=== PATIENT | female | born 1950 | race Caucasian/White ===

== ENCOUNTER 2019-08-13 07:53 | Day surgery (SDC) | payer MEDICARE, MEDICAID ==
[2019-08-12 08:42] VITALS: BMI 29.7
[~2019-08-13 07:53] MED LIST: Activase 2 MG VIAL FS SCH; EPINEPHrine 0.3 MG in Ophthalmic Irrigation Solution 500 ML IVP SCH
[2019-08-13] MEDS ORDERED: Cyclopentolate 1% Opth Drop 2 ML BOT ONE (08:49)
[2019-08-13] MEDS ORDERED: Phenylephrine 2.5% Ophth Soln 5 ML BOT ONE (08:49)
[2019-08-13] MEDS ORDERED: Midazolam HCl 2 mg/2 ml Vial ONE ×2 (10:41→11:06)
[2019-08-13] MEDS ORDERED: Fentanyl 100 MCG/2 ML VIAL ONE (11:06)
--- NOTE | 2019-08-13 15:27 | OP ---
DATE OF PROCEDURE: 08/13/2019 PRINCIPAL PREOPERATIVE DIAGNOSIS: Subretinal submacular hemorrhage, left eye. POSTOPERATIVE DIAGNOSIS: Subretinal submacular hemorrhage, left eye. NAME OF PROCEDURES PERFORMED: 1. 25-gauge pars plana vitrectomy, left eye. 2. Subretinal tissue plasminogen activator injection, left eye. 3. Endolaser, left eye. 4. 15% SF6 fill, left eye. ESTIMATED BLOOD LOSS: None. SPECIMENS REMOVED: None. COMPLICATIONS: None. ANESTHESIA: MAC with retrobulbar block. SUMMARY OF OPERATION: The patient was identified in the preoperative holding area, where the correct eye being the left eye was marked for surgery. She was taken to the operating room, where MAC anesthesia was induced. A retrobulbar block was administered to the left eye. The block consisted of 1:1 ratio of 4% lidocaine and 0.75% Marcaine. A total of 5 mL was administered. The left eye was then prepped and draped in the usual sterile ophthalmic fashion for surgery. A wire lid speculum was placed. A standard 25-gauge pars plana vitrectomy platform was fashioned with trocars placed approximately 4 mm from the limbus. The infusion was noted to be within the vitreous cavity prior to being turned on to an infusion pressure of 30 mmHg. The light pipe Micro vitrector were introduced into the eye under visualization of RESIGHT viewing system. A careful core vitrectomy was performed followed by injection of Kenalog. Subsequently, a gentle posterior vitreous detachment was created followed by completion of peripheral shave vitrectomy. Using the 41-gauge subretinal needle, the tissue plasminogen activator was injected into the area of submacular hemorrhage just superior to the inferotemporal arcade. A sizable bleb of tissue plasminogen activator was achieved followed by slight filling of sterile air under the retina. An air-fluid exchange was performed followed by an air-gas exchange with 15% SF6. During the air-gas exchange, it was noted that there was a temporal retinal defect at 4 o'clock with an area of retinal detachment extending beyond the intended area of tissue plasminogen activator injection. The eye was subsequently filled again with balanced salt solution to improve visualization of the defect. The defect was marked with endo cautery and the superotemporal drainage retinotomy site was created peripheral to the supratemporal arcade. This was created with the endo cautery followed by opening with a flute needle. An air-fluid exchange was performed, which allowed for complete flattening of the retina. During this air-fluid exchange, a sizable portion of submacular hemorrhage was drained through the retinotomy site. Subsequently, endolaser was performed around the retinotomy site as well as the peripheral defect and the temporal peripheral retina. Subsequently, air-gas exchange was performed with 15% SF6. The cannulas were sequentially removed and all sclerotomies were sutured with 8-0 Vicryl suture. Following suturing, all sclerotomies were noted to be gas tight. Ancef and Kenalog were injected subconjunctivally. The wire lid speculum was removed followed by application of TobraDex ophthalmic ointment and a light patch and shield. The patient tolerated the procedure well and was taken to outpatient recovery area in good condition. Job ID: [id number]
== END 2019-08-13 14:00 | disposition home or self-care (01) ==
LOC: SDC 07:53
PROVIDERS: ATTEND Ophthalmology Retina Specialist
PROC: 08953ZZ Drainage of Left Vitreous, Percutaneous Approach (ICD-10-PCS; principal; 2019-08-13)
DX: H35.62 Retinal hemorrhage, left eye (principal); Z88.5 Allergy status to narcotic agent; Z88.8 Allergy status to other drugs, medicaments and biological substances
CPT/HCPCS: 67043; J2997; J0171; J2250; J3010; J7620

== ENCOUNTER 2020-07-21 07:49 | Outpatient (CLI) | payer MEDICARE, MEDICAID, OTHER ==
[2020-07-21 15:57] LABS: #Basophils 0.1 thou/uL (0.0-0.2); #Eosinphils 0.5 thou/uL (0.0-0.7); #Lymphocytes 2.2 thou/uL (1.20-3.40); #Monocytes 0.7 thou/uL (0.11-0.59); #Neutrophils 3.8 thou/uL (1.40-6.50); %Basophils 0.7 % (0.0-1.0); %Eosinophils 6.8 % (0.0-10.0); %Lymphocytes 30.4 % (21.0-51.0); %Monocytes 9.2 % (0.0-10.0); %Neutrophils 52.9 % (42.0-75.0); Hemoglobin 14.2 g/dL (12.0-16.0); Mean Corpuscular HGB CONC 33.7 g/dL (32.0-36.0); Mean Corpuscular Volume 95.1 fL (78.0-98.0); Mean Platelet Volume 8.3 fL (7.4-10.4); Platelet Count 233 thou/uL (130-400); RBC Distribution Width 11.3 % (11.5-14.5); Red Blood Cell (RBC) Count 4.45 mill/uL (4.20-5.40); White Blood Cell (WBC) Count 7.2 thou/uL (4.8-10.8)
[2020-07-21 16:14] LABS: INR-International Normal Ratio 0.9; Prothrombin Time 12.3 sec (12.0-14.7)
[2020-07-21 16:41] LABS: Anion Gap 10 mmol/L (10-20); BUN (Urea Nitrogen) 21 mg/dL (9.8-20.1); Calc. Creatinine Clearance 0 mL/min (70-130); Calcium 9.2 mg/dL (7.8-10.44); Carbon Dioxide 31 mmol/L (23-31); Chloride 106 mmol/L (98-107); Estimated GFR-MDRD 73; Glucose 80 mg/dL (80-115); Potassium 4.4 mmol/L (3.5-5.1); Sodium 143 mmol/L (136-145)
[2020-07-22 12:25] LABS: SARS-CoV-2 MS2 Positive; SARS-CoV-2 N Gene Negative; SARS-CoV-2 S Gene Negative; SARS-CoV-2 by NAA Not Detected (NotDetected); SARS-CoV-2 orf1ab Negative
--- NOTE | 2020-07-24 08:38 | EKG ---
Test Reason : Blood Pressure : / mmHG Vent. Rate : 078 BPM Atrial Rate : 078 BPM P-R Int : 126 ms QRS Dur : 084 ms QT Int : 370 ms P-R-T Axes : 066 072 075 degrees QTc Int : 421 ms Normal sinus rhythm Right atrial enlargement Nonspecific ST abnormality poor quality EKG Abnormal ECG No previous ECGs available Confirmed by DR. Sha VÁSQUEZ ([id number]) on 07/24/2020 8:38:25 AM Referred By: JUAREZ Confirmed By:DR. Sha VÁSQUEZ
== END 2020-07-21 07:50 | disposition home or self-care (01) ==
LOC: LABBT 07:49
PROVIDERS: ATTEND Orthopaedic Surgery
DX: Z01.818 Encounter for other preprocedural examination (principal); Z20.828 Contact with and (suspected) exposure to other viral communicable diseases; M17.11 Unilateral primary osteoarthritis, right knee
CPT/HCPCS: 80048; 85025; 85610; 87081; 93005; U0003; 87635; 93010

== ENCOUNTER 2020-07-26 05:45 | Day surgery (SDC) | payer MEDICARE, MEDICAID ==
[2020-07-25 14:30] VITALS: BMI 29.7
[2020-07-26] MEDS ORDERED: Sodium Chloride 0.9% 100 ML ONE (06:10)
[2020-07-26] MEDS ORDERED: Tranexamic Acid 1,000 MG/10 ML VIAL ONE (06:10)
[2020-07-26] MEDS ORDERED: Vancomycin 1 GM/200 ML BAG ONE (06:10)
[2020-07-26] MEDS ORDERED: Midazolam HCl 2 mg/2 ml Vial ONE (06:13)
[2020-07-26] MEDS ORDERED: Ropivacaine 0.2% HCl/PF 20 ML ONE (06:13)
[2020-07-26] MEDS ORDERED: Lidocaine 1% (PF) 30 ML VIAL ONE (06:13)
[2020-07-26] MEDS ORDERED: Fentanyl 100 MCG/2 ML VIAL ONE ×2 (06:13→07:18)
[2020-07-26] MEDS ORDERED: Bupivacaine/Epinephrine 0.25% 30 ML VIAL ONE (06:30)
[2020-07-26] MEDS ORDERED: Fentanyl 100 MCG/2 ML VIAL IV PRN (06:47)
[2020-07-26] MEDS ORDERED: HYDROcodone/Acetaminophen 10/325 mg Tablet PO PRN ×2 (07:00)
[2020-07-26] MEDS ORDERED: traMADol HCl 50 MG TAB PO PRN (07:00)
[2020-07-26] MEDS ORDERED: Promethazine HCl 25 MG/ML VIAL IM PRN ×3 (07:00→11:33)
[2020-07-26] MEDS ORDERED: Ropivacaine HCl/PF 250 ML in Premix Bag 1 BAG NERVE BLCK SCH (07:00)
[2020-07-26] MEDS ORDERED: Zolpidem Tartrate 5 MG TAB PO PRN (07:00)
[2020-07-26] MEDS ORDERED: Ondansetron PF 4 MG/2 ML Vial IVP PRN (07:00)
[2020-07-26] MEDS ORDERED: Scopolamine 1.5 mg/72 hour Patch ONE (07:15)
[2020-07-26] MEDS ORDERED: Acetaminophen/Codeine 30-300mg Tablet PO PRN (07:22)
--- NOTE | 2020-07-26 09:18 | RAD ---
CHEST 2 VIEWS: Date: 07/26/2020 HISTORY: Preop evaluation. COMPARISON: Radiograph from 2018. FINDINGS: Lungs are clear. No pneumothorax or effusion. Cardiac silhouette and mediastinal contours are within normal limits. No acute osseous abnormality. IMPRESSION: 1. No acute intrathoracic abnormality. 2. Old right-sided rib fractures. POS: OFF
[2020-07-26] MEDS ORDERED: HYDROmorphone 2 MG/ML VIAL SLOW IVP PRN ×2 (09:19→11:33)
[2020-07-26] MEDS ORDERED: Promethazine HCl 25 MG/ML VIAL SLOW IVP PRN (09:19)
[2020-07-26] MEDS ORDERED: diphenhydrAMINE 25 MG CAP PO PRN ×2 (09:43→11:34)
[2020-07-26] MEDS ORDERED: Aspirin 81 mg Enteric Coated Tablet PO SCH (09:43)
[2020-07-26] MEDS ORDERED: Senokot S 8.6-50 MG TAB PO SCH (09:43)
[2020-07-26] MEDS ORDERED: Acetaminophen 325 MG TAB PO PRN ×2 (09:43→11:34)
[2020-07-26] MEDS ORDERED: Ketorolac Tromethamine 30 MG/ML VIAL IVP PRN ×2 (09:43→11:34)
[2020-07-26] MEDS ORDERED: Vancomycin 1 GM in Premix Bag 1 BAG IVPB SCH ×2 (09:43→18:00)
[2020-07-26] MEDS ORDERED: Ferrous Gluconate 324 MG TAB PO SCH (09:43)
[2020-07-26] MEDS ORDERED: CEFAZOLIN 2 GM in Premix Bag 1 BAG IVPB SCH (09:43)
[2020-07-26] MEDS ORDERED: Multivitamin W/ Minerals 1 TAB PO SCH (09:43)
[2020-07-26] MEDS ORDERED: Dextrose 5 %-0.45 % NaCl 1,000 ML IV SCH (09:43)
--- NOTE | 2020-07-26 10:20 | RAD ---
XR Knee Rt 2 View HISTORY: Right total knee arthroplasty FINDINGS: There are recent postop changes of total knee arthroplasty in good position and alignment. Soft tissu e air is present
[2020-07-26] MEDS ORDERED: Albuterol Sulfate 2.5 mg/3 ml Neb NEB PRN (11:23)
[2020-07-26] MEDS ORDERED: Ketorolac Tromethamine 30 MG/ML VIAL ONE (12:44)
[2020-07-26] MEDS ORDERED: Bupivacaine HCl 0.5%/Epinephrine 1:200,000/PF 30 ml Vial ONE (12:44)
[2020-07-26] MEDS ORDERED: PHENYLEPHRINE-NS 100 MCG/ML 10 ML SYRINGE ONE (12:44)
[2020-07-26] MEDS ORDERED: Glycopyrrolate 0.2 MG/ML 5 ML SYRINGE ONE (12:44)
[2020-07-26] MEDS ORDERED: Metoclopramide HCl 10 MG/2 ML VIAL ONE (12:44)
[2020-07-26] MEDS ORDERED: PROPOFOL 200 MG/20 ML VIAL ONE (12:44)
[2020-07-26] MEDS ORDERED: Lidocaine 1% PF 5 ML VIAL ONE (12:44)
[2020-07-26] MEDS ORDERED: Rocuronium Bromide 10 MG/ML (10ML VIAL) ONE (12:44)
[2020-07-26] MEDS ORDERED: Ondansetron PF 4 MG/2 ML Vial ONE (12:44)
[2020-07-26] MEDS ORDERED: Dexamethasone 20 MG/5 ML VIAL ONE (12:44)
[2020-07-26] MEDS ORDERED: Ropivacaine 0.2% HCl/PF (40 MG/20 ML VIAL) ONE (12:44)
[2020-07-26] MEDS: Dextrose 5 %-0.45 % NaCl 1,000 ML IV SCH ×2 (13:15→19:57)
[2020-07-26] MEDS: CEFAZOLIN 2 GM in Premix Bag 1 BAG IVPB SCH ×2 (16:10→23:10)
[2020-07-26] MEDS: Aspirin 81 mg Enteric Coated Tablet PO SCH (19:56)
[2020-07-26] MEDS: Lisinopril 10 MG TAB PO SCH (19:56)
[2020-07-27] MEDS: Dextrose 5 %-0.45 % NaCl 1,000 ML IV SCH ×2 (05:42→16:00)
[2020-07-27 05:48] LABS: Hemoglobin 11.1 g/dL (12.0-16.0); Mean Corpuscular HGB CONC 33.4 g/dL (32.0-36.0); Mean Corpuscular Hemoglobin 31.7 pg (27.0-31.0); Mean Corpuscular Volume 94.7 fL (78.0-98.0); Mean Platelet Volume 7.8 fL (7.4-10.4); Platelet Count 201 thou/uL (130-400); RBC Distribution Width 11.4 % (11.5-14.5); White Blood Cell (WBC) Count 7.8 thou/uL (4.8-10.8)
--- NOTE | 2020-07-27 08:30 | OP ---
DATE OF PROCEDURE: 07/26/2020 PREOPERATIVE DIAGNOSIS: Right knee varus osteoarthritis. POSTOPERATIVE DIAGNOSIS: Right knee varus osteoarthritis. PROCEDURE PERFORMED: Right total knee arthroplasty. GRIEVANCE COORDINATOR: Sergio Benson PA-C. ANESTHESIA: . The patient received general with an adductor canal catheter with single-shot sciatic. ESTIMATED BLOOD LOSS: 100 mL. TOURNIQUET TIME: 94 minutes at 300 mmHg. ANTIBIOTICS: Ancef 2 g, vancomycin 1 g, TXA 1 g. IMPLANTS: Patient had a Talib posterior stabilized size 3 femur, primary tibial base plate size 3, 13 mm posterior stabilized poly and an S27 poly. COMPLICATIONS: None. HISTORY OF PRESENT ILLNESS: Ms. Borrego is a 69-year-old female with severe varus of her right knee. The patient has varus arthritis of right knee. The patient has failed conservative measures, weight reduction, anti-inflammatories, bracing, injections. She desired right total arthroplasty. I discussed risks and benefits of surgery, pain, scar, bleeding, infection, damage to vital structures, decreased range of motion, strength and blood clots, loss of life or limb, complications of anesthesia. She understood these risks and benefits and elected to proceed. DESCRIPTION OF PROCEDURE: A time-out was performed designating the patient's right lower extremity as the operative site based on site, consents, and marking. After time-out, the patient's right upper extremity was prepped and draped in sterile fashion. Made a midline incision and medial patellar arthrotomy. We excised our fat pad. We did a medial soft tissue release. We had to take down with osteotomes, ostephytes, subluxed the patella and everted the patella. The patient was posteromedially subluxed because of what appeared to be likely incompetency of her PCL and ACL, she had worn posteromedially. We pinned the femur, cut at 8, 9, 0 degrees of varus and valgus, and 4 degrees of slope. Liked our cut. Went back and removed osteophytes, placed our 3-degree external rotation jig, ensured that it was in appropriate position, cut and placed our 3-degree external rotation jig into position. We felt like a 3 would be the appropriate size. We cut for our 3. We placed our 3 mm. We removed it, we placed a size 3 cutting block, cut anterior and posterior and chamfer cuts, removed the osteophytes. Had difficulty posteromedially because it subluxed posteriorly. I then placed our pickle fork into place and lateral retractor to expose our tibia. We mapped out the tibia and cut at 0, 6, and about 3 degrees of slope. We removed all the implants. We removed all the bone osteophytes. We then placed our lamina closing manager, decompressed medially, the notch posterior osteophytes, decompressing what was left of the PCL. The PCL was just remnant fibers. We did a notchplasty and removed the entirety of the medial meniscus, did a submedial osteophyte removal. We then moved laterally, removed the remnant bone and lateral meniscus, osteophytes and the posterior osteophytes. We placed a size 3 tray. We pinned it into position. We trialed with 11, then a 13 mm cruciate retaining poly. We felt like she had too much subluxation and hyperextension. We were concerned with the lack of her PCL as well as severe posteromedial defect, this was likely longstanding. Therefore, we elected to put a posterior stabilized. We everted the patella, cut the patella down from about 22 to about a 12. We pinned our patellar tendon in place. We trialed, had good overall position, we were happy with this. We removed our tibia, we placed our box, cut our box, removed all the osteophytes, trialed with a 13, felt overall it was nice and stable. We then removed all implants, cemented our tibia, cemented our femur, ensured no cement was in the box, removed all of the cement. Being happy, we then placed our [address], impacted it, extended the knee, everted the patella, cemented our patella, removed the excess cement, washed and closed the arthrotomy with #2 Vicryl, 2 StrataFix, 0 StrataFix, 2-0 StrataFix and glue. The patient will be weightbearing as tolerated. Follow postop protocol. Job ID: [id number] MTDD
[2020-07-27] MEDS: traMADol HCl 50 MG TAB PO PRN ×2 (08:55→14:55)
[2020-07-27] MEDS: Ascorbic Acid 500 mg Chewable Tablet PO SCH (08:57)
[2020-07-27] MEDS: Zinc Sulfate 220 MG CAP PO SCH (08:58)
[2020-07-27] MEDS: Multivitamin W/ Minerals 1 TAB PO SCH (08:58)
[2020-07-27] MEDS: Senokot S 8.6-50 MG TAB PO SCH ×2 (08:58→20:47)
[2020-07-27] MEDS: Ferrous Gluconate 324 MG TAB PO SCH ×2 (08:58→20:47)
[2020-07-27] MEDS: Aspirin 81 mg Enteric Coated Tablet PO SCH ×2 (08:58→20:47)
[2020-07-27] MEDS: Cholecalciferol 1,000 UNITS (25 MCG) TAB PO SCH (08:59)
[2020-07-27] MEDS ORDERED: Multivit, Therapeutic 1 TAB PO SCH (09:00)
[2020-07-27] MEDS: Acetaminophen/Codeine 30-300mg Tablet PO PRN ×2 (11:42→20:46)
[2020-07-27] MEDS: Lisinopril 10 MG TAB PO SCH (20:47)
[2020-07-28] MEDS: Dextrose 5 %-0.45 % NaCl 1,000 ML IV SCH ×2 (06:35→10:55)
[2020-07-28 06:43] LABS: Hemoglobin 10.9 g/dL (12.0-16.0); Mean Corpuscular HGB CONC 33.6 g/dL (32.0-36.0); Mean Corpuscular Volume 95.2 fL (78.0-98.0); Platelet Count 188 thou/uL (130-400); RBC Distribution Width 11.5 % (11.5-14.5); White Blood Cell (WBC) Count 9.4 thou/uL (4.8-10.8)
[2020-07-28] MEDS: Aspirin 81 mg Enteric Coated Tablet PO SCH ×2 (08:43→21:03)
[2020-07-28] MEDS: Multivitamin W/ Minerals 1 TAB PO SCH (08:43)
[2020-07-28] MEDS: Cholecalciferol 1,000 UNITS (25 MCG) TAB PO SCH (08:43)
[2020-07-28] MEDS: Zinc Sulfate 220 MG CAP PO SCH (08:43)
[2020-07-28] MEDS: Ferrous Gluconate 324 MG TAB PO SCH ×2 (08:43→21:05)
[2020-07-28] MEDS: Ascorbic Acid 500 mg Chewable Tablet PO SCH (08:43)
[2020-07-28] MEDS: Senokot S 8.6-50 MG TAB PO SCH ×2 (08:43→21:05)
[2020-07-28] MEDS: Acetaminophen/Codeine 30-300mg Tablet PO PRN (10:05)
[2020-07-28] MEDS: traMADol HCl 50 MG TAB PO PRN (12:42)
[2020-07-28] MEDS: Lisinopril 10 MG TAB PO SCH (21:04)
[2020-07-29] MEDS: traMADol HCl 50 MG TAB PO PRN ×2 (04:19→14:00)
[2020-07-29 05:17] LABS: Hemoglobin 10.2 g/dL (12.0-16.0); Mean Corpuscular HGB CONC 32.2 g/dL (32.0-36.0); Mean Corpuscular Hemoglobin 30.5 pg (27.0-31.0); Mean Corpuscular Volume 94.8 fL (78.0-98.0); Mean Platelet Volume 7.5 fL (7.4-10.4); Platelet Count 205 thou/uL (130-400); RBC Distribution Width 11.4 % (11.5-14.5); Red Blood Cell (RBC) Count 3.34 mill/uL (4.20-5.40); White Blood Cell (WBC) Count 7.6 thou/uL (4.8-10.8)
[2020-07-29] MEDS: Dextrose 5 %-0.45 % NaCl 1,000 ML IV SCH ×2 (05:24→10:57)
[2020-07-29] MEDS: Senokot S 8.6-50 MG TAB PO SCH (09:19)
[2020-07-29] MEDS: Multivitamin W/ Minerals 1 TAB PO SCH (09:20)
[2020-07-29] MEDS: Ferrous Gluconate 324 MG TAB PO SCH (09:20)
[2020-07-29] MEDS: Zinc Sulfate 220 MG CAP PO SCH (09:20)
[2020-07-29] MEDS: Aspirin 81 mg Enteric Coated Tablet PO SCH (09:20)
[2020-07-29] MEDS: Ascorbic Acid 500 mg Chewable Tablet PO SCH (09:20)
[2020-07-29] MEDS: Cholecalciferol 1,000 UNITS (25 MCG) TAB PO SCH (09:22)
[2020-07-29] MEDS: Acetaminophen/Codeine 30-300mg Tablet PO PRN (09:33)
[2020-07-29 11:05] VITALS: BP 126/64; TEMP 98.4
== END 2020-07-29 14:15 | disposition home or self-care (01) ==
LOC: SDC 05:45 → SURG B 09:43 → EDSTATUS 14:30 → SDC 07-29 14:15
PROVIDERS: ATTEND Orthopaedic Surgery
PROC: 0SRC0J9 Replacement of Right Knee Joint with Synthetic Substitute, Cemented, Open Approach (ICD-10-PCS; principal; 2020-07-26)
PROC: 3E0T3BZ Introduction of Anesthetic Agent into Peripheral Nerves and Plexi, Percutaneous Approach (ICD-10-PCS; 2020-07-26)
PROC: 3E0T3BZ Introduction of Anesthetic Agent into Peripheral Nerves and Plexi, Percutaneous Approach (ICD-10-PCS; 2020-07-26)
DX: M17.11 Unilateral primary osteoarthritis, right knee (principal); M21.161 Varus deformity, not elsewhere classified, right knee; G89.18 Other acute postprocedural pain; J45.909 Unspecified asthma, uncomplicated; Z87.891 Personal history of nicotine dependence; Z79.899 Other long term (current) drug therapy; Z88.5 Allergy status to narcotic agent; Z88.8 Allergy status to other drugs, medicaments and biological substances
CPT/HCPCS: 27447; 64445; 64448; 71046; 73560; 85027; 97110 ×3; 97116 ×4; 97139 ×4; 97530 ×2; C1713; C1776; 36415; J0690; J1100; J1885; J2001; J2250; J2405; J2704; J2765; J2795; J3010; J3370; J3490

== ENCOUNTER 2020-12-06 05:35 | Inpatient (IN) | payer MEDICARE, MEDICAID ==
[2020-12-05 10:37] VITALS: BMI 28.3
[2020-12-06] MEDS ORDERED: Midazolam HCl 2 mg/2 ml Vial ONE ×2 (06:03→06:36)
[2020-12-06] MEDS ORDERED: Fentanyl 100 MCG/2 ML VIAL ONE ×5 (06:03→12:25)
[2020-12-06] MEDS ORDERED: Bupivacaine 0.25% HCL 30 ML VIAL ONE (06:27)
[2020-12-06] MEDS ORDERED: Lidocaine 1% w/Epinephrine 1:100K 20 ML VIAL ONE (06:27)
[2020-12-06] MEDS ORDERED: Sodium Chloride 0.9% 100 ML ONE (06:49)
[2020-12-06] MEDS ORDERED: Vancomycin 1 GM/200 ML BAG ONE ×2 (06:49→18:21)
[2020-12-06] MEDS ORDERED: Tranexamic Acid 1,000 MG/10 ML VIAL ONE (06:49)
[2020-12-06 06:55] LABS: #Basophils 0.1 thou/uL (0.0-0.2); #Eosinphils 0.5 thou/uL (0.0-0.7); #Lymphocytes 2.1 thou/uL (1.20-3.40); #Monocytes 0.6 thou/uL (0.11-0.59); #Neutrophils 3.6 thou/uL (1.40-6.50); %Basophils 1.3 % (0.0-1.0); %Monocytes 8.2 % (0.0-10.0); %Neutrophils 52.5 % (42.0-75.0); Hemoglobin 13.4 g/dL (12.0-16.0); Mean Corpuscular HGB CONC 33.5 g/dL (32.0-36.0); Mean Corpuscular Hemoglobin 31.2 pg (27.0-31.0); Mean Corpuscular Volume 93.2 fL (78.0-98.0); Mean Platelet Volume 7.9 fL (7.4-10.4); Platelet Count 202 thou/uL (130-400); RBC Distribution Width 12.3 % (11.5-14.5); White Blood Cell (WBC) Count 6.9 thou/uL (4.8-10.8)
[2020-12-06 07:13] LABS: Anion Gap 12 mmol/L (10-20); BUN (Urea Nitrogen) 18 mg/dL (9.8-20.1); Calc. Creatinine Clearance 99 mL/min (70-130); Calcium 8.7 mg/dL (7.8-10.44); Carbon Dioxide 24 mmol/L (23-31); Chloride 106 mmol/L (98-107); Glucose 96 mg/dL (80-115); Potassium 3.9 mmol/L (3.5-5.1); Sodium 138 mmol/L (136-145)
[2020-12-06 07:57] LABS: SARS-CoV-2 NAA Rapid Test Not Detected (NotDetected)
[2020-12-06] MEDS ORDERED: Zolpidem Tartrate 5 MG TAB PO PRN (09:00)
[2020-12-06] MEDS ORDERED: Ropivacaine HCl/PF 250 ML in Premix Bag 1 BAG NERVE BLCK SCH (09:00)
[2020-12-06] MEDS ORDERED: Ondansetron PF 4 MG/2 ML Vial IVP PRN (09:00)
[2020-12-06] MEDS ORDERED: Promethazine HCl 25 MG/ML VIAL IM PRN ×2 (09:00→10:37)
[2020-12-06] MEDS ORDERED: Fentanyl 100 MCG/2 ML VIAL IV PRN (09:01)
[2020-12-06] MEDS ORDERED: Ropivacaine 2% HCl/PF (20 MG/10 ML VIAL) ONE (10:32)
[2020-12-06] MEDS ORDERED: Bupivacaine HCl 0.5%/Epinephrine 1:200,000/PF 30 ml Vial ONE (10:32)
[2020-12-06] MEDS ORDERED: Ondansetron PF 4 MG/2 ML Vial ONE (10:32)
[2020-12-06] MEDS ORDERED: PROPOFOL 200 MG/20 ML VIAL ONE (10:32)
[2020-12-06] MEDS ORDERED: Lidocaine 1% PF 5 ML VIAL ONE (10:32)
[2020-12-06] MEDS ORDERED: Dexamethasone 20 MG/5 ML VIAL ONE (10:32)
[2020-12-06] MEDS ORDERED: Promethazine HCl 25 MG/ML VIAL SLOW IVP PRN (10:37)
[2020-12-06] MEDS ORDERED: Ondansetron HCl/PF 4 MG/2 ML Vial IVP PRN (10:37)
[2020-12-06] MEDS ORDERED: diphenhydrAMINE 25 MG CAP PO PRN (11:15)
[2020-12-06] MEDS ORDERED: Fentanyl 100 MCG/2 ML VIAL SLOW IVP PRN (11:15)
[2020-12-06] MEDS ORDERED: Acetaminophen 325 MG TAB PO PRN (11:15)
[2020-12-06] MEDS ORDERED: HYDROcodone/Acetaminophen 10/325 mg Tablet ONE ×2 (11:58→15:32)
[2020-12-06] MEDS: HYDROcodone/Acetaminophen 10/325 mg Tablet PO PRN ×2 (12:03→16:40)
[2020-12-06] MEDS ORDERED: Ropivacaine 0.2% 550 ML 550 ML NERVE BLCK SCH (12:15)
[2020-12-06] MEDS ORDERED: Ketorolac Tromethamine 30 MG/ML VIAL ONE ×3 (13:22→18:23)
[2020-12-06] MEDS: Ketorolac Tromethamine 30 MG/ML VIAL IVP SCH ×3 (13:22→23:45)
[2020-12-06] MEDS ORDERED: Promethazine HCl 25 MG/ML VIAL ONE (13:22)
--- NOTE | 2020-12-06 15:52 | OP ---
DATE OF PROCEDURE: 12/06/2020 PREOPERATIVE DIAGNOSES: Left knee osteoarthritis, severe varus. POSTOPERATIVE DIAGNOSES: Left knee osteoarthritis, severe varus. PROCEDURE PERFORMED: Left total knee arthroplasty. TOPOLOGY TEACHER: Khadar Benson. ANESTHESIA: Dr. Torres. The patient received an LMA with an adductor canal, single shot sciatic. ESTIMATED BLOOD LOSS: <100cc TOURNIQUET TIME: 90 minutes at 300 mmHg. ANTIBIOTICS: Ancef 2 g, vancomycin 1.1 g, TXA 1 g. IMPLANTS: The patient received a Talib Triathlon size S27 symmetric patella, a size 3 tibial base plate, a size 3 posterior stabilized femoral component, a 13 mm PS size X3 poly. COMPLICATIONS: None. HISTORY OF PRESENT ILLNESS: Ms. Borrego is a 69-year-old female with previous right total knee arthroplasty, presents for left knee pain and left total knee arthroplasty. I discussed with her the risks and benefits of surgery, pain, scar, bleeding, infection, damage to vital structures, decreased range of motion and strength, fracture above or below the stem, need for further surgery, revision, blood clots, loss of life or limb. The patient understood the risks and benefits of procedure, elected to proceed. DESCRIPTION OF PROCEDURE: Time-out was performed designating the patient's left lower extremity as the operative site based on site, consents, and markings. After time-out, the patient's left lower extremity was prepped and draped in sterile fashion. Tourniquet was brought up and left for 90 minutes. Anteromedial incision, medial patellar arthrotomy exposed. We did excise the fat pad, everted the patella and brought the patient to extension. The patient had a very indurated synovium that was thickened and had hemosiderin. We excised the synovium, did a subtotal synovectomy superiorly and in the pouch. On completion of this, we did our medial soft tissue release to release the tibia. We then pinned our femoral guide, cut in 0 degree of varus and valgus, 4 degrees of slope with 8 and 6 respectively. We cut and removed this. We placed our 3-degree external rotation guide, which we pinned into place. We sized to 3 like the previous side, placed our pin and block and cut our posterior, anterior, chamfer cuts and cut a size 3, removed all the osteophytes and bone, placed our pickle fork into place, released her PCL. She had torn her ACL. She had a large proximal tibia medial defect. We rongeured the tibial plateau to get osteophytes medially to do our decompression. We then cut at 0 degree in varus and valgus, and we pinned and mapped out our tibia in 4 degrees of slope, removed this section. We then ensured that we had decompressed medially all the osteophytes. Placed our laminar jointer operator mediolaterally, removed the menisci. PCL was essentially nonfunctional. We after removing our osteophytes medially and laterally and decompressing both medially and laterally, being pleased with this, we pinned our tibial tray in position with anterior 1/3 in line with the tibial tubercle down the shaft. We liked the pin position. We trialed with a cruciate retaining and placed a 13 poly, which we felt had good extension and good flexion and extension stability. We liked the overall position, but she had too much anterior- posterior translation, only had really essentially MCL and LCL intact. Therefore, we elected to august out patella, cut it and went from about 20 down to 10, placed the S27 patella. After completion of our trial, being happy with tracking of our patella, we then went back. We cut our blocks for our posterior stabilized knee. We cleaned that and trialed with 11, felt the 13 would be appropriate. We then removed all our implants, cut our keel, leaving our tibia with out our keel, washed, cemented our tibia, removed excess cement, cemented our posterior stabilized femur, placed our [address]. It was tight medially, but we had good overall stability and good compression. I liked the overall tracking. We cemented our patella, removed excess cement, extension let it seal and let it to harden as we then closed in slight flexion arthrotomy with #2 Vicryl, #2 Stratafix, 0 Stratafix, 2-0 Stratafix, and glue. The patient will be followed with [facility] protocol, will be admitted, will be observed overnight. The patient will follow up postop. My community assistant helped me with the positioning, incision, dissection, retraction of vital structures, bone cuts, implantation, washing and closure of the total knee arthroplasty. Job ID: [id number] [facility]
[2020-12-06] MEDS: Sodium Chloride 0.9% 1,000 ML IV SCH (18:30)
[2020-12-06] MEDS: CEFAZOLIN 2 GM in Premix Bag 1 BAG IVPB SCH ×2 (18:30→23:45)
--- NOTE | 2020-12-06 18:31 | RAD ---
XR Knee Lt 2 View: 12/06/2020 6:10 PM CLINICAL INDICATION: Status post left total knee arthroplasty COMPARISON: Left knee radiograph dated August 16, 2020 FINDINGS: Bones: No acute fracture is demonstrated. Joints: There is been interval placement of a left total knee prosthesis. There is improved alignment of the left knee joint. There is scattered intra-articular and periarticular soft tissue gas consistent with the patient's recent postoperative state.. Soft Tissue: No acute abnormality.. IMPRESSION: Left total knee arthroplasty.
[2020-12-06] MEDS ORDERED: Vancomycin 1 GM in Premix Bag 1 BAG IVPB SCH (19:00)
[2020-12-06] MEDS: Senokot S 8.6-50 MG TAB PO SCH (21:30)
[2020-12-06] MEDS: Ferrous Gluconate 324 MG TAB PO SCH (21:33)
[2020-12-06] MEDS: Aspirin 81 mg Enteric Coated Tablet PO SCH (21:33)
--- NOTE | 2020-12-06 22:13 | EKG ---
Test Reason : PREOP Blood Pressure : / mmHG Vent. Rate : 069 BPM Atrial Rate : 069 BPM P-R Int : 138 ms QRS Dur : 086 ms QT Int : 426 ms P-R-T Axes : 066 012 047 degrees QTc Int : 456 ms Normal sinus rhythm Normal ECG When compared with ECG of 21-JUL-2020 13:50, Questionable change in QRS axis Confirmed by Aaliyah MONTE ([id number]) on 12/06/2020 10:13:39 PM Referred By: EDMUNDO Confirmed By:Aaliyah MONTE
[2020-12-07] MEDS: Sodium Chloride 0.9% 1,000 ML IV SCH ×3 (03:50→17:13)
[2020-12-07] MEDS: Ketorolac Tromethamine 30 MG/ML VIAL IVP SCH ×4 (06:13→23:31)
[2020-12-07 06:47] LABS: Hemoglobin 10.8 g/dL (12.0-16.0); Mean Corpuscular HGB CONC 33.1 g/dL (32.0-36.0); Mean Corpuscular Hemoglobin 30.8 pg (27.0-31.0); Mean Corpuscular Volume 93.1 fL (78.0-98.0); Mean Platelet Volume 7.9 fL (7.4-10.4); Platelet Count 186 thou/uL (130-400); RBC Distribution Width 12.3 % (11.5-14.5); Red Blood Cell (RBC) Count 3.52 mill/uL (4.20-5.40); White Blood Cell (WBC) Count 8.3 thou/uL (4.8-10.8)
[2020-12-07] MEDS: Ferrous Gluconate 324 MG TAB PO SCH ×2 (08:47→20:59)
[2020-12-07] MEDS: Aspirin 81 mg Enteric Coated Tablet PO SCH ×2 (08:47→20:59)
[2020-12-07] MEDS: Senokot S 8.6-50 MG TAB PO SCH ×2 (08:47→20:59)
[2020-12-07] MEDS: Multivitamin W/ Minerals 1 TAB PO SCH (08:47)
[2020-12-07] MEDS: HYDROcodone/Acetaminophen 10/325 mg Tablet PO PRN ×3 (10:28→23:31)
[2020-12-07] MEDS: Lisinopril 10 MG TAB PO SCH (20:58)
[2020-12-08 05:31] LABS: Hemoglobin 11.2 g/dL (12.0-16.0); Mean Corpuscular HGB CONC 32.4 g/dL (32.0-36.0); Mean Corpuscular Hemoglobin 30.4 pg (27.0-31.0); Mean Corpuscular Volume 93.8 fL (78.0-98.0); Mean Platelet Volume 7.9 fL (7.4-10.4); Platelet Count 165 thou/uL (130-400); RBC Distribution Width 12.4 % (11.5-14.5); White Blood Cell (WBC) Count 7.5 thou/uL (4.8-10.8)
[2020-12-08] MEDS: Ketorolac Tromethamine 30 MG/ML VIAL IVP SCH (06:16)
[2020-12-08] MEDS: Sodium Chloride 0.9% 1,000 ML IV SCH ×2 (06:21→08:03)
[2020-12-08] MEDS: traMADol HCl 50 MG TAB PO PRN ×2 (07:29→14:01)
[2020-12-08] MEDS: Aspirin 81 mg Enteric Coated Tablet PO SCH ×2 (08:01→20:01)
[2020-12-08] MEDS: Multivitamin W/ Minerals 1 TAB PO SCH (08:02)
[2020-12-08] MEDS: Ferrous Gluconate 324 MG TAB PO SCH ×2 (08:02→20:01)
[2020-12-08] MEDS: Senokot S 8.6-50 MG TAB PO SCH ×2 (08:02→20:03)
[2020-12-08] MEDS: HYDROcodone/Acetaminophen 10/325 mg Tablet PO PRN (09:50)
[2020-12-08] MEDS: Ondansetron ODT 4 MG TAB PO PRN (15:18)
[2020-12-08] MEDS: tiZANidine HCl 4 MG TAB PO SCH (20:01)
[2020-12-08] MEDS: Lisinopril 10 MG TAB PO SCH (20:02)
[2020-12-09] MEDS: Sodium Chloride 0.9% 1,000 ML IV SCH ×3 (01:05→19:44)
[2020-12-09 06:35] LABS: Hemoglobin 11.1 g/dL (12.0-16.0); Mean Corpuscular HGB CONC 32.3 g/dL (32.0-36.0); Mean Corpuscular Hemoglobin 30.7 pg (27.0-31.0); Mean Corpuscular Volume 95.1 fL (78.0-98.0); Mean Platelet Volume 7.8 fL (7.4-10.4); Platelet Count 161 thou/uL (130-400); RBC Distribution Width 12.4 % (11.5-14.5); Red Blood Cell (RBC) Count 3.63 mill/uL (4.20-5.40); White Blood Cell (WBC) Count 8.2 thou/uL (4.8-10.8)
[2020-12-09] MEDS: Senokot S 8.6-50 MG TAB PO SCH ×2 (08:38→20:47)
[2020-12-09] MEDS: tiZANidine HCl 4 MG TAB PO SCH ×2 (08:38→20:48)
[2020-12-09] MEDS: Aspirin 81 mg Enteric Coated Tablet PO SCH ×2 (08:38→20:47)
[2020-12-09] MEDS: HYDROcodone/Acetaminophen 10/325 mg Tablet PO PRN ×2 (08:38→17:30)
[2020-12-09] MEDS: Multivitamin W/ Minerals 1 TAB PO SCH (08:40)
[2020-12-09] MEDS: Ferrous Gluconate 324 MG TAB PO SCH ×2 (08:40→20:48)
--- NOTE | 2020-12-09 14:12 | PRG ---
DATE OF SERVICE: SUBJECTIVE: Ekta is a 69-year-old female, who is postop day 3 from a left total knee arthroplasty. This is her second arthroplasty and in the process of recovery, she has experienced significantly more pain with this surgery than she did in her previous right knee. She is declining in her function and her ambulation went from 260 feet yesterday to 40 feet today. She admits to discomfort and amplified pain in the left knee. PHYSICAL EXAMINATION: Visual inspection of the left lower extremity demonstrates her to have significant swelling and ecchymosis circumferentially. Her skin is tight and tense. The knee examination is as not profound as the leg exam itself. There is no drainage to strike through. No erythema. It is not excessively warm to the touch. IMPRESSION: A 69-year-old female postop day #3 left total knee arthroplasty with recrudescence of pain and also diminishment of independence in performance and ADLs. PLAN: Due to the swelling, I will obtain a venous Doppler of the left lower extremity. Also, I will hold discharge at this point for reexamination tomorrow. The patient may require another day or so due to inability to ambulate from intractable pain and not quite being at independence as expected. Job ID: [id number]
--- NOTE | 2020-12-09 16:56 | ULT ---
Left lower extremity venous Doppler ultrasound: 12/09/2020 COMPARISON: None HISTORY: Left lower extremity edema, recent left knee replacement on 12/06/2020 TECHNIQUE: Multiplanar grayscale sonographic imaging of the venous structures of the left lower extre mity obtained with Doppler interrogation including color flow and spectral analysis. FINDINGS: The left common femoral vein, greater saphenous vein, profunda femoral vein, femoral vein, and popliteal vein demonstrate normal blood flow, augmentation, and compression. The left posterior tibial vein appears patent. Medial to the knee and posterior to the knee medially there is a oval hypoechoic mildly heterogeneous lesion measuring 2.5 x 3.1 x 4.3 cm. The exact location is difficult to distinguish on this examination. This may be within the deep soft tissues or potentially within the left knee joint. IMPRESSION: No evidence for deep venous thrombosis of the left lower extremity. Oval hypoechoic lesio n medial to and posterior to the medial aspect of the left knee. This is likely associated with a postoperative fluid collection. A soft tissue hematoma is favored. This could alternatively represent an atypical appearance of joint capsular distention secondary to postoperative state. Recommend follow-up imaging to document resolution.
--- NOTE | 2020-12-09 17:18 | RAD ---
LEFT FORELEG THREE VIEWS: 12/09/20 INDICATION: Leg swelling and pain. COMPARISON: None. FINDINGS: There is soft tissue gas seen along the dorsal aspect of the left foot is nonspecific. There is promi nent soft tissue swelling of the left foreleg. There is a left total knee prosthesis. No definite acu te fracture is evident. Enthesopathic change seen off the calcaneus. IMPRESSION: 1. Soft tissue gas along the anterior aspect of the left ankle and foot suspicious for either so ft tissue injury or possibly a gas producing bacterial infection. 2. Extensive soft tissue swelling of the left foreleg suspicious for cellulitis or lymphadenopat hy. POS: BH
[2020-12-09] MEDS: Ondansetron ODT 4 MG TAB PO PRN (18:44)
[2020-12-09] MEDS: Lisinopril 10 MG TAB PO SCH (20:48)
[2020-12-10] MEDS: HYDROcodone/Acetaminophen 10/325 mg Tablet PO PRN ×4 (03:33→22:16)
[2020-12-10] MEDS: Sodium Chloride 0.9% 1,000 ML IV SCH ×2 (05:32→15:36)
[2020-12-10 06:06] LABS: Mean Corpuscular HGB CONC 33.8 g/dL (32.0-36.0); Mean Corpuscular Hemoglobin 31.1 pg (27.0-31.0); Mean Corpuscular Volume 92.2 fL (78.0-98.0); Mean Platelet Volume 7.6 fL (7.4-10.4); Platelet Count 205 thou/uL (130-400); RBC Distribution Width 12.4 % (11.5-14.5); Red Blood Cell (RBC) Count 3.22 mill/uL (4.20-5.40); White Blood Cell (WBC) Count 7.8 thou/uL (4.8-10.8)
[2020-12-10] MEDS: Senokot S 8.6-50 MG TAB PO SCH ×2 (09:32→20:33)
[2020-12-10] MEDS: Aspirin 81 mg Enteric Coated Tablet PO SCH ×2 (09:32→20:36)
[2020-12-10] MEDS: tiZANidine HCl 4 MG TAB PO SCH ×2 (09:35→22:16)
[2020-12-10] MEDS: Ondansetron ODT 4 MG TAB PO PRN ×2 (15:34→22:15)
[2020-12-10] MEDS: Ferrous Gluconate 324 MG TAB PO SCH ×2 (15:35→20:36)
[2020-12-10] MEDS: Multivitamin W/ Minerals 1 TAB PO SCH (15:35)
[2020-12-10] MEDS: traMADol HCl 50 MG TAB PO PRN (17:39)
[2020-12-10] MEDS: Lisinopril 10 MG TAB PO SCH (20:34)
[2020-12-11] MEDS: Sodium Chloride 0.9% 1,000 ML IV SCH ×4 (00:04→23:27)
[2020-12-11] MEDS: traMADol HCl 50 MG TAB PO PRN (01:22)
[2020-12-11] MEDS: Ondansetron ODT 4 MG TAB PO PRN ×4 (02:00→21:41)
[2020-12-11] MEDS: HYDROcodone/Acetaminophen 10/325 mg Tablet PO PRN (04:38)
[2020-12-11] MEDS: Ferrous Gluconate 324 MG TAB PO SCH ×2 (09:16→21:42)
[2020-12-11] MEDS: Senokot S 8.6-50 MG TAB PO SCH ×2 (09:16→21:41)
[2020-12-11] MEDS: Aspirin 81 mg Enteric Coated Tablet PO SCH ×2 (09:16→21:43)
[2020-12-11] MEDS: Multivitamin W/ Minerals 1 TAB PO SCH (09:22)
[2020-12-11] MEDS: tiZANidine HCl 4 MG TAB PO SCH ×2 (09:22→21:42)
[2020-12-11 09:36] LABS: Hemoglobin 10.1 g/dL (12.0-16.0); Mean Corpuscular HGB CONC 32.7 g/dL (32.0-36.0); Mean Corpuscular Hemoglobin 30.2 pg (27.0-31.0); Mean Corpuscular Volume 92.4 fL (78.0-98.0); Mean Platelet Volume 6.8 fL (7.4-10.4); Platelet Count 253 thou/uL (130-400); RBC Distribution Width 12.3 % (11.5-14.5); Red Blood Cell (RBC) Count 3.36 mill/uL (4.20-5.40); White Blood Cell (WBC) Count 7.1 thou/uL (4.8-10.8)
[2020-12-11] MEDS ORDERED: traMADol HCl 50 MG TAB PO PRN ×2 (12:20→12:21)
[2020-12-11] MEDS ORDERED: HYDROcodone/Acetaminophen 10/325 mg Tablet PO PRN ×2 (12:20)
[2020-12-11] MEDS ORDERED: Promethazine HCl 25 MG/ML VIAL IM PRN (12:21)
[2020-12-11] MEDS ORDERED: Zolpidem Tartrate 5 MG TAB PO PRN (12:21)
[2020-12-11] MEDS ORDERED: Ondansetron PF 4 MG/2 ML Vial IVP PRN (12:21)
[2020-12-11] MEDS ORDERED: Fentanyl 100 MCG/2 ML VIAL IV PRN (12:22)
[2020-12-11] MEDS ORDERED: diphenhydrAMINE 25 MG CAP PO PRN (12:22)
[2020-12-11] MEDS ORDERED: Fentanyl 100 MCG/2 ML VIAL SLOW IVP PRN (12:23)
[2020-12-11] MEDS ORDERED: Ropivacaine 0.2% 550 ML 550 ML NERVE BLCK SCH (12:30)
[2020-12-11] MEDS: Lisinopril 10 MG TAB PO SCH (21:42)
[2020-12-11] MEDS: Acetaminophen 325 MG TAB PO PRN (21:42)
[2020-12-12 07:00] LABS: Hemoglobin 11.3 g/dL (12.0-16.0); Mean Corpuscular HGB CONC 32.9 g/dL (32.0-36.0); Mean Corpuscular Hemoglobin 30.3 pg (27.0-31.0); Mean Corpuscular Volume 92.1 fL (78.0-98.0); Mean Platelet Volume 6.8 fL (7.4-10.4); Platelet Count 280 thou/uL (130-400); RBC Distribution Width 12.2 % (11.5-14.5); Red Blood Cell (RBC) Count 3.74 mill/uL (4.20-5.40); White Blood Cell (WBC) Count 6.4 thou/uL (4.8-10.8)
[2020-12-12] MEDS: Aspirin 81 mg Enteric Coated Tablet PO SCH ×2 (10:33→21:03)
[2020-12-12] MEDS: Senokot S 8.6-50 MG TAB PO SCH ×2 (10:34→21:04)
[2020-12-12] MEDS: tiZANidine HCl 4 MG TAB PO SCH ×2 (10:34→21:04)
[2020-12-12] MEDS: Ferrous Gluconate 324 MG TAB PO SCH ×2 (10:34→21:04)
[2020-12-12] MEDS: Multivitamin W/ Minerals 1 TAB PO SCH (10:35)
[2020-12-12] MEDS: Sodium Chloride 0.9% 1,000 ML IV SCH ×2 (10:36→19:01)
[2020-12-12] MEDS: Lisinopril 10 MG TAB PO SCH (21:04)
[2020-12-12] MEDS: Acetaminophen 325 MG TAB PO PRN (21:04)
[2020-12-13 06:00] LABS: Hemoglobin 10.2 g/dL (12.0-16.0); Mean Corpuscular HGB CONC 33.4 g/dL (32.0-36.0); Mean Corpuscular Hemoglobin 30.5 pg (27.0-31.0); Mean Corpuscular Volume 91.5 fL (78.0-98.0); Mean Platelet Volume 6.7 fL (7.4-10.4); Platelet Count 296 thou/uL (130-400); RBC Distribution Width 12.3 % (11.5-14.5); Red Blood Cell (RBC) Count 3.35 mill/uL (4.20-5.40)
[2020-12-13] MEDS: Sodium Chloride 0.9% 1,000 ML IV SCH (06:12)
[2020-12-13] MEDS: Multivitamin W/ Minerals 1 TAB PO SCH (09:21)
[2020-12-13] MEDS: Ferrous Gluconate 324 MG TAB PO SCH (09:21)
[2020-12-13] MEDS: Senokot S 8.6-50 MG TAB PO SCH (09:22)
[2020-12-13] MEDS: tiZANidine HCl 4 MG TAB PO SCH (09:22)
[2020-12-13] MEDS: Aspirin 81 mg Enteric Coated Tablet PO SCH (09:22)
[2020-12-13 11:44] VITALS: BP 107/70; TEMP 98.5
== END 2020-12-13 16:33 | disposition home or self-care (01) | DRG 470 ==
LOC: SDC 05:35 → SURG A 05:36 → SDC 11:15 → SURG A 11:15 → EDSTATUS 14:30 → SDC 12-09 16:01 → SURG A 12-09 16:01
PROVIDERS: ADMIT Orthopaedic Surgery; ATTEND Orthopaedic Surgery
PROC: 0SRD0J9 Replacement of Left Knee Joint with Synthetic Substitute, Cemented, Open Approach (ICD-10-PCS; principal; 2020-12-06)
DX: M17.12 Unilateral primary osteoarthritis, left knee (principal); M21.162 Varus deformity, not elsewhere classified, left knee; Z96.651 Presence of right artificial knee joint; Z20.822 Contact with and (suspected) exposure to COVID-19; Z79.82 Long term (current) use of aspirin; Z79.899 Other long term (current) drug therapy; Z88.5 Allergy status to narcotic agent
CPT/HCPCS: 36415; 80048; 85025; 85027; 93005; 93010; A4306; C1713; C1776; J0690; J1100; J1885; J2250; J2405; J2550; J2704; J2795; J3010; J3370; J3490; Q0162; S0020; U0002

== ENCOUNTER 2021-08-18 15:11 | Outpatient (CLI) | payer MEDICARE, MEDICAID | END 2021-08-18 15:12 | disposition home or self-care (01) | LOC: CTENTCT 15:11 | PROVIDERS: ATTEND Student in an Organized Health Care Education/Training Program | DX: J32.9 Chronic sinusitis, unspecified (principal) | CPT/HCPCS: 70486 ==